=== PATIENT | male | born 1965 | race Caucasian/White ===

== ENCOUNTER 2016-08-06 10:18 | Emergency (ER) | payer BC | END 2016-08-06 11:26 | disposition home or self-care (01) | LOC: ER1 10:18 | DX: Z04.3 Encounter for examination and observation following other accident (principal) | CPT/HCPCS: 99282 ==

== ENCOUNTER 2020-06-12 22:53 | Emergency (ER) | payer BC ==
[2020-06-12 23:28] LABS: HEMOGLOBIN 15.3 gm/dl (14.0-17.5); RED BLOOD COUNT 4.88 M/UL (4.20-5.50); WHITE BLOOD COUNT 9.5 K/UL (4.5-11.0)
[2020-06-12 23:57] LABS: BUN/CREATININE RATIO 12 (0-10)
[2020-06-13] MEDS ORDERED: KEPPRA500 MG PO (01:16)
[2020-06-13] MEDS ORDERED: LIBRIUM CAP 2525 MG PO (01:16)
== END 2020-06-13 01:58 | disposition home or self-care (01) ==
LOC: ER1 22:53
PROVIDERS: Family Medicine
DX: F10.239 Alcohol dependence with withdrawal, unspecified (principal); Y90.0 Blood alcohol level of less than 20 mg/100 ml
CPT/HCPCS: 70450; 71045; 80053; 80307; 82550; 82553; 83874; 84484; 85025; 93005; 96365; 96366; 96367; 96375; 99285; G0480; J1953; J2060; J3411; J3475; J7030

== ENCOUNTER 2020-12-24 03:32 | Emergency (ER) | payer BC ==
[~2020-12-24 03:32] MED LIST: KEPPRA500 MG PO; LIBRIUM CAP 2525 MG PO
[2020-12-24] MEDS ORDERED: CEPHALEXIN500 MG PO (05:08)
[2020-12-24] MEDS ORDERED: LODINE CAP 300300 MG PO (05:08)
== END 2020-12-24 06:25 | disposition home or self-care (01) ==
LOC: ER1 03:32
DX: S67.02XA Crushing injury of left thumb, initial encounter (principal); S67.191A Crushing injury of left index finger, initial encounter; S67.01XA Crushing injury of right thumb, initial encounter; S67.190A Crushing injury of right index finger, initial encounter; F17.290 Nicotine dependence, other tobacco product, uncomplicated; W23.0XXA Caught, crushed, jammed, or pinched between moving objects, initial encounter; Y92.009 Unspecified place in unspecified non-institutional (private) residence as the place of occurrence of the external cause
CPT/HCPCS: 12002; 73130; 99282; J0690